=== PATIENT | male | born 1965 | race American Indian/Alaskan Native ===

== ENCOUNTER 2017-06-14 02:51 | Emergency (ER) | payer MEDICAID ==
[2017-06-14] MEDS ORDERED: Albuterol-Ipratrop 3 mg / 0.5 (3 ml) UD INH STA (03:13)
[2017-06-14] MEDS ORDERED: Albuterol-Ipratrop 3 mg / 0.5 (3 ml) UD ONE (03:15)
--- NOTE | 2017-06-14 03:40 | ED PDOC ---
HPI: Chest Pain Time Seen by Provider: 06/14/17 03:04 Chief Complaint (Nursing): Chest Pain Chief Complaint (Provider): Chest Tightness History Per: Patient History/Exam Limitations: no limitations Onset/Duration Of Symptoms: Mins (x 20) Additional Complaint(s): Patient is a 51 y/o male with a history of CHF, COPD, and hypertension who presents to the ED with an episode of chest tightness while he was waiting at a bus stop. He states he feels symptoms are consistent with his asthma and denies associated nausea, vomiting, or diaphoresis. Patient requests inhalation treatment and discharge. Patient was initially unwilling to provide history and insisted on sleeping. In provider's opinion he is currently using opiates PMD: Dr. 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) - Allergies Allergies/Adverse Reactions: Allergies Allergy/AdvReac Type Severity Reaction Status Date / Time No Known Allergies Allergy Verified 06/14/17 03:05 Review of Systems ROS Statement: Except As Marked, All Systems Reviewed And Found Negative Constitutional: Negative for: Sweats Cardiovascular: Positive for: Chest Pain (tightness) Gastrointestinal: Negative for: Nausea, Vomiting Physical Exam - Reviewed Nursing Documentation Reviewed: Yes Vital Signs Reviewed: Yes - Physical Exam Appears: Positive for: Non-toxic, No Acute Distress Head Exam: Positive for: ATRAUMATIC, NORMAL INSPECTION, NORMOCEPHALIC Skin: Positive for: Normal Color, Warm, Dry Eye Exam: Positive for: Normal appearance, EOMI, PERRL. Negative for: Nystagmus ENT: Positive for: Normal ENT Inspection Neck: Positive for: Normal, Painless ROM, Supple Cardiovascular/Chest: Positive for: Regular Rate, Rhythm. Negative for: Edema, Murmur Respiratory: Positive for: Normal Breath Sounds. Negative for: Wheezing, Respiratory Distress Gastrointestinal/Abdominal: Positive for: Normal Exam, Bowel Sounds, Soft. Negative for: Tenderness Back: Positive for: Normal Inspection Extremity: Positive for: Normal ROM. Negative for: Pedal Edema, Deformity Neurologic/Psych: Positive for: Alert, Oriented - Laboratory Results Result Diagrams: 06/14/17 03:27 06/14/17 03:27 - ECG O2 Sat by Pulse Oximetry: 100 (RA) Pulse Ox Interpretation: Normal Medical Decision Making Medical Decision Making: Time: 3:07 Initial Impression: male w/ chest tightness in setting of known chf, hypertension, asthma Initial Plan: --EKG --CMP --Urine Drug Screen --Troponin I --CBC --PTT --Prothrombin Time --Duoneb --Peak Flow Pre/Post Time: 6:00 --Patient refused to provide urine for toxicology --Labs show no clinically significant abnormalities --Patient is stable for discharge home Clinical Impression: Atypical chest tightness, substance abuse Condition: Stable Scribe Attestation: Documented by Ravi Lassiter, acting as a scribe for Edu Scott MD Provider Scribe Attestation: All medical record entries made by the Scribe were at my direction and personally dictated by me. I have reviewed the chart and agree that the record accurately reflects my personal performance of the history, physical exam, medical decision making, and the department course for this patient. I have also personally directed, reviewed, and agree with the discharge instructions and disposition. Disposition - Clinical Impression Clinical Impression: Atypical chest pain, Opiate abuse, episodic - Patient ED Disposition Is Patient to be Admitted: No Counseled Patient/Family Regarding: Studies Performed, Diagnosis, Need For Followup - Disposition Disposition: Routine/Home Disposition Time: 06:00 Condition: STABLE Instructions: Noncardiac Chest Pain (ED) Forms: [employer] (E[place]ian) - POA Present On Arrival: None
[2017-06-14 03:54] VITALS: RESP 17
[2017-06-14 05:09] LABS: BASO % 0.4 % (0.0-2.0); EOS # 0.2 K/uL (0.0-0.7); EOS % 3.5 % (0.0-4.0); HEMATOCRIT 37.2 % (35.0-51.0); LYMPH # 2.7 K/uL (1.0-4.3); LYMPH % 47.8 % (20.0-40.0); MEAN CORPUSCULAR HEMOGLOBIN 27.8 pg (27.0-31.0); MEAN CORPUSCULAR HGB CONC 32.4 g/dL (33.0-37.0); MEAN PLATELET VOLUME 9.4 fl (7.2-11.7); MONO # 0.4 K/uL (0.0-0.8); MONO % 7.7 % (0.0-10.0); NEUT # 2.3 K/uL (1.8-7.0); NEUT % 40.6 % (50.0-75.0); RED CELL DISTRIBUTION WIDTH 13.9 % (11.5-14.5); WHITE BLOOD COUNT 5.6 K/uL (4.8-10.8)
[2017-06-14 05:21] LABS: PARTIAL THROMBOPLASTIN TIME 41.5 Seconds (25.6-37.1)
[2017-06-14 05:34] LABS: BLOOD UREA NITROGEN 18 mg/dl (9-20); CHLORIDE 104 mmol/L (98-107); GFR AFRICAN-AMERICAN > 60; GLUCOSE,RANDOM 128 mg/dL (75-110); POTASSIUM 3.6 MMOL/L (3.6-5.0); SODIUM 141 mmol/l (132-148)
[2017-06-14 05:35] LABS: ALKALINE PHOSPHATASE 87 U/L (38-126); ALT/SGPT 41 U/L (21-72); AST/SGOT 35 U/L (17-59); BILIRUBIN,TOTAL 0.7 mg/dl (0.2-1.3); CALCIUM 8.9 mg/dL (8.4-10.2); CARBON DIOXIDE 28 mmol/L (22-30)
[2017-06-14 06:24] VITALS: BP 125/68; PULSE 81; TEMP 98.3; O2SAT 98
--- NOTE | 2017-06-14 07:52 | CARD ---
APPROVED REPORT EKG Measurement Heart [id number] <Conclusion> Normal sinus rhythm Possible Left atrial enlargement Nonspecific T wave abnormality Prolonged QT Abnormal ECG
== END 2017-06-14 06:15 | disposition home or self-care (01) ==
LOC: H.ER 02:51
DX: R07.89 Other chest pain (principal); F11.20 Opioid dependence, uncomplicated; E78.00 Pure hypercholesterolemia, unspecified; I11.0 Hypertensive heart disease with heart failure; J44.9 Chronic obstructive pulmonary disease, unspecified